=== PATIENT | male | born 1950 | race Caucasian/White ===

== ENCOUNTER 2025-05-06 22:54 | Emergency (ER) | payer MEDICARE, SELFPAY ==
--- OUTSIDE RECORDS SUMMARY | 2005-07-18 09:00 | XMS_ITS | Continuity of Care Document ---
Author Organization [facility] Address [id number] [place] [address] [address] [place] [address] Phone Care Team Providers Care General Internal Medicine Doctor Name Role Phone Rosina Valdivia Unavailable Unavailable Advance Directives Directive Yes / No Effective Date File Name No Information Encounters Encounter Description Practice Location Reason(s) For Visit Diagnoses Date Provider Providers Copied on Encounter [facility], [address], [place], [place], [id number], [place] tel:[phone] [facility] [place] No Information 6-200 6 Shea Almaguer. [address] [facility] , [address], [place], [address], [place]. tel:[phone] Family History Family Member Type Diagnosis Age At Onset No Information Payers Payer name Insurance type Covered alliance party ID Authoriza tion(s) [employer] SOI CI [id number] Social History Type Description Quantity Date Captured Comments Sex Male Smoking Status No Information Chief Complaint And Reason For Visit No Information Reason For Referral Reason For Referral No Information History Of Present Illness Encounter Date Complaint History Of Prese nt Illness No Information Functional Status Date Functional Assessmen t No Information Instructions Date Instruction Additional Infor mation No Information Assessments Type Assessment Date No Information Patient Care Teams Name Effective Dates (start - stop) Status Members No Information
--- OUTSIDE RECORDS SUMMARY | 2005-07-18 09:00 | XMS_ITS | Continuity of Care Document ---
Author Organization [facility] Address [address] [place] [address] [address] [place] [address] Phone Care Team Providers Care Loss Prevention Detective Name Role Phone Rosina Valdivia Unavailable Unavailable Advance Directives Directive Yes / No Effective Date File Name No Information Encounters Encounter Description Practice Location Reason(s) For Visit Diagnoses Date Provider Providers Copied on Encounter [facility], [address], [place], [place], [id number], [place] tel:[phone] [facility] [place] No Information 6-200 6 Shea Almaguer. [address] [facility] , [address], [place], [address], [place]. tel:[phone] Family History Family Member Type Diagnosis Age At Onset No Information Payers Payer name Insurance type Covered green party ID Authoriza tion(s) [employer] SOI CI [id number] Social History Type Description Quantity Date Captured [...]
--- OUTSIDE RECORDS SUMMARY | 2005-07-18 09:00 | XMS_ITS | Continuity of Care Document ---
Author Organization [facility] Address [address] [place] [address] [address] [place] [address] Phone Care Team Providers Care Electrical Wiring Lineman Name Role Phone Rosina Valdivia Unavailable Unavailable Advance Directives Directive Yes / No Effective Date File Name No Information Encounters Encounter Description Practice Location Reason(s) For Visit Diagnoses Date Provider Providers Copied on Encounter [facility], [address], [place], [place], [id number], [place] tel:[phone] [facility] [place] No Information 6-200 6 Shea Almaguer. [address] [facility] , [address], [place], [address], [place]. tel:[phone] Family History Family Member Type Diagnosis Age At Onset No Information Payers Payer name Insurance type Covered constitution party ID Authoriza tion(s) [employer] SOI CI [id number] Social History Type Description Quantity Date Captured [...]
--- OUTSIDE RECORDS SUMMARY | 2005-07-18 09:00 | XMS_ITS | Continuity of Care Document ---
Author Organization [facility] Address [address] [place] [address] [address] [place] [address] Phone Care Team Providers Care Body Fitter Name Role Phone Rosina Valdivia Unavailable Unavailable Advance Directives Directive Yes / No Effective Date File Name No Information Encounters Encounter Description Practice Location Reason(s) For Visit Diagnoses Date Provider Providers Copied on Encounter [facility], [address], [place], [place], [id number], [place] tel:[phone] [facility] [place] No Information 6-200 6 Shea Almaguer. [address] [facility] , [address], [place], [address], [place]. tel:[phone] Family History Family Member Type Diagnosis Age At Onset No Information Payers Payer name Insurance type Covered democrat ID Authoriza tion(s) [employer] SOI CI [id number] Social History Type Description Quantity Date Captured [...]
--- OUTSIDE RECORDS SUMMARY | 2025-01-06 18:00 | XMS_ITS | Continuity of Care Document ---
Author Organization [facility] Address [address] [place] [address] Phone Care Team Providers Care Radio Equipment Installer Name Role Phone Ildefonso ROWAN, FACC, Maurice Unavailable Unavailab le Procedures Procedure Date TTE W/DOPPLER, COMPLETE ELECTROCARDIOGRAM REPORT CHURCH OFFICIAL Split Share Billing [facility] CARE [facility]SEQU[facility] CARE Advance Directives Directive Yes / No Effective Date File Name No Information Encounters Encounter Description Practice Location Reason(s) For Visit Diagnoses Date Provider Providers Copied on Encounter [facility], [address] [place] [address], [id number], tel:[phone] [facility] Inpt No Information 5 Ildefonso Richards. [address] [place] [address], [id number] , . tel: [phone] Referring Provider: Maurice Fregoso, [address] [place] [address], [id number] . tel:[phone] [facility], [address] [place] [address], [id number], tel:[phone] [facility] Inpt No Information 5 Magen Valdez. [address] [place] [address], [id number] , . tel:[phone] Referring Provider: José Miguel Zaptaa, [address] [place] [address], [id number] . tel:[phone] [facility], [address] [place] [address], [id number], tel:[phone] [facility] Inpt Abnormal electrocardiogram [ECG] [EKG]Athscl heart disease of [place] coronary artery w/o ang pctrsEssential (primary) hypertension 5 Lidia Corcoran. [address] [place] [address], [id number] , . tel: [phone] [facility] C[facility], [address] [place] [address], [id number], tel:[phone] [facility] Inpt Abnormal electrocardiogram [ECG] [EKG]Athscl heart disease of [place] coronary artery w/o ang pctrsEssential (primary) hypertension 5 Magen Valdez. [address] [place] [address], [id number] , . tel: [phone] [facility], [address] [place] [address], [id number], tel:[phone] [facility] Inpt Abnormal electrocardiogram [ECG] [EKG]Athscl heart disease of [place] coronary artery w/o ang pctrsEssential (primary) hypertension 5 Dayanna Hart. [address] [place] [address], [id number] , . tel: [phone] Family History Family Member Type Diagnosis Age At Onset No Information Payers Payer name Insurance type Covered libertarian ID Anali orozco(s) [place] [id number] Social History Type Description Quantity Date Captured [...]
--- OUTSIDE RECORDS SUMMARY | 2025-01-06 18:00 | XMS_ITS | Continuity of Care Document ---
Author Organization [facility] Address [address] [place] [address] Phone Care Team Providers Care Zinc Plating Machine Operator Name Role Phone Ildefonso ROWAN, FACC, Maurice Unavailable Unavailab le Procedures Procedure Date TTE W/DOPPLER, COMPLETE ELECTROCARDIOGRAM REPORT WELDING TECHNICIAN Split Share Billing SUBSEQUENT [facility]OSPITAL CARE SUBSEQU[facility] HOSPITAL CARE Advance Directives Directive Yes / No Effective Date File Name No Information Encounters Encounter Description Practice Location Reason(s) For Visit Diagnoses Date Provider Providers Copied on Encounter [facility], [address] [place] [address], [id number], tel:[phone] [facility] Inpt No Information 5 Ildefonso Richards. [address] [place] [address], [id number] , . tel: [phone] Referring Provider: Maurice Fregoso, [address] [place] [address], [id number] . tel:[phone] [facility], [address] [place] [address], [id number], tel:[phone] [facility] Inpt No Information 5 Magen Valdez. [address] [place] [address], [id number] , . tel:[phone] Referring Provider: José Miguel Zapata, [address] [place] [address], [id number] . tel:[phone] [facility], [address] [place] [address], [id number], tel:[phone] [facility] Inpt Abnormal electrocardiogram [ECG] [EKG]Athscl heart disease of [place] coronary artery w/o ang pctrsEssential (primary) hypertension 5 Lidia Corcoran. [address] [place] [address], [id number] , . tel: [phone] [facility], [address] [place] [address], [id number], tel:[phone] [facility] Inpt Abnormal electrocardiogram [ECG] [EKG]Athscl heart disease of [place] coronary artery w/o ang pctrsEssential (primary) hypertension 5 Magen Valdez. [address] [place] [address], [id number] , . tel: [phone] [facility], [address] [place] [address], [id number], tel:[phone] [facility] Inpt Abnormal electrocardiogram [ECG] [EKG]Athscl heart disease of [place] coronary artery w/o ang pctrsEssential (primary) hypertension 5 Dayanna Hart. [address] [place] [address], [id number] , . tel: [phone] Family History Family Member Type Diagnosis Age At Onset No Information Payers Payer name Insurance type Covered libertarian ID Anali orozco(s) [place] CI [id number] Social History Type Description Quantity Date Captured [...]
--- OUTSIDE RECORDS SUMMARY | 2025-01-06 18:00 | XMS_ITS | Continuity of Care Document ---
Author Organization [facility] Address [address] [place] [phone] Phone Care Team Providers Care Physician General Practice Name Role Phone Ildefonso ROWAN, FACC, Maurice Unavailable Unavailab le Procedures Procedure Date TTE W/DOPPLER, COMPLETE ELECTROCARDIOGRAM REPORT SPEAR FISHER Split Share Billing [facility]SEQU[facility] CARE SUBSEQU[facility]OSPITAL CARE Advance Directives Directive Yes / No Effective Date File Name No Information Encounters Encounter Description Practice Location Reason(s) For Visit Diagnoses Date Provider Providers Copied on Encounter [facility], [address] [place] [address], [id number], tel:[phone] [facility] Inpt No Information 5 Ildefonso Richards. [address] [place] [address], [id number] , . tel: [phone] Referring Provider: Maurice Fregoso, [address] [place] [address], [id number] . tel:[phone] [facility], [address] [place] [address], [id number], tel:[phone] [facility] Inpt No Information 5 Magen Valdez. [address] [place] [address], [id number] , . tel:[phone] Referring Provider: José Miguel Zapata, [address] [place] [address], [id number] . tel:[phone] [facility], [address] [place] [address], [id number], tel:[phone] [facility] Inpt Abnormal electrocardiogram [ECG] [EKG]Athscl heart disease of [place] coronary artery w/o ang pctrsEssential (primary) hypertension 5 Lidia Corcoran. [address] [place] [address], [id number] , . tel: [phone] [facility], [address] [place] [address], [id number], tel:[phone] [facility] Inpt Abnormal electrocardiogram [ECG] [EKG]Athscl heart disease of [place] coronary artery w/o ang pctrsEssential (primary) hypertension 5 Magen Valdez. [address] [place] [address], [id number] , . tel: [phone] [facility], [address] [place] [address], [id number], tel:[phone] [facility] Inpt Abnormal electrocardiogram [ECG] [EKG]Athscl heart disease of [place] coronary artery w/o ang pctrsEssential (primary) hypertension 5 Dayanna Hart. [address] [place] [address], [id number] , . tel: [phone] Family History Family Member Type Diagnosis Age At Onset No Information Payers Payer name Insurance type Covered green party ID Anali orozco(s) [place] CI [id number] Social History Type Description Quantity Date Captured [...]
--- OUTSIDE RECORDS SUMMARY | 2025-01-06 18:00 | XMS_ITS | Continuity of Care Document ---
Author Organization [facility] Address [address] [place] [address] Phone Care Team Providers Care University Tutor Name Role Phone Ildefonso ROWAN, FACC, Maurice Unavailable Unavailab le Procedures Procedure Date TTE W/DOPPLER, COMPLETE ELECTROCARDIOGRAM REPORT MOLD MAKER PLASTIC MOLDS Split Share Billing [facility] CARE SUB[facility] CARE Advance Directives Directive Yes / No Effective Date File Name No Information Encounters Encounter Description Practice Location Reason(s) For Visit Diagnoses Date Provider Providers Copied on Encounter [facility], [address] [place] [address], [id number], tel:[phone] [facility] Inpt No Information 5 Ildefonso Richards. [address] [place] [address], [id number] , . tel: [phone] Referring Provider: Maurice Fregoso, [address] [place] [address], [id number] . tel:[phone] [facility], [address] [place] [address], [id number], tel:[phone] [facility] Inpt No Information 5 Magen Valdez. [address] [place] [address], [id number] , . tel:[phone] Referring Provider: José Miguel Zapata, [address] [place] [address], [id number] . tel:[phone] [facility], [address] [place] [address], [id number], tel:[phone] [facility] Inpt Abnormal electrocardiogram [ECG] [EKG]Athscl heart disease of [place] coronary artery w/o ang pctrsEssential (primary) hypertension 5 Lidia Corcoran. [address] [place] [address], [id number] , . tel: [phone] [facility], [address] [place] [address], [id number], tel:[phone] [facility] Inpt Abnormal electrocardiogram [ECG] [EKG]Athscl heart disease of [place] coronary artery w/o ang pctrsEssential (primary) hypertension 5 Magen Valdez. [address] [place] [address], [id number] , . tel: [phone] [facility], [address] [place] [address], [id number], tel:[phone] [facility] Inpt Abnormal electrocardiogram [ECG] [EKG]Athscl heart disease of [place] coronary artery w/o ang pctrsEssential (primary) hypertension 5 Dayanna Hart. [address] [place] [address], [id number] , . tel: [phone] Family History Family Member Type Diagnosis Age At Onset No Information Payers Payer name Insurance type Covered democrat ID Anali orozco(s) [place] CI [id number] Social History Type Description Quantity Date Captured [...]
[2025-05-06] VITALS (8 sets, daily range): BP systolic 150–212; BP diastolic 89–93; PULSE 91–116; RESP 16–21; TEMP 36.5; O2SAT 99–100
--- NOTE | ~2025-05-06 | CT_ITS ---
EXAMINATION: CT abdomen pelvis wo/w con DATE: 05/07/2025 01:15 INDICATION: Gastrointestinal hemorrhage. TECHNIQUE: Computed tomography (CT) of the abdomen and pelvis was performed without and with 100 mL of Isovue 350 intravenous contrast. Automated exposure control and iterative reconstruction technique were employed. The dose-length product was 728.21 mGy-cm. COMPARISON: None. FINDINGS: The visualized portions of the lung bases demonstrate mild scarring in paraspinal right lower lobe. No pleural effusion. The heart size is normal. No pericardial effusion. There are coronary artery calcifications. There are calcifications of the aortic valve. The liver is normal. Calcifications in the spleen are consistent with old granulomatous disease. The gallbladder, pancreas, and right adrenal glands are normal. There is a 10 mm mass in left adrenal gland measuring low attenuation, consistent with an adenoma. There are cysts in the kidneys measuring up to 13 mm on the right. There are parenchymal calcifications in the kidneys bilaterally. There is a 5 mm stone in left kidney. There is a 5 mm stone in right kidney. The prostate is severely enlarged. There is a left inguinal hernia containing fat. There is diverticulosis of the colon without evidence of diverticulitis. The appendix is normal. There are no dilated loops of bowel. There are no pathologically enlarged lymph nodes. There is a small sliding hiatal hernia. There is no free intraperitoneal fluid. There is calcified atherosclerosis of the aorta and many of the other arteries. There is moderate stenosis of the renal arteries bilaterally. There is moderate stenosis of superior mesenteric artery and inferior mesenteric artery. There is severe lower lumbar spondylosis. IMPRESSION: 1. No etiology for gastrointestinal hemorrhage. 2. Moderate stenosis of the renal arteries, superior mesenteric artery, and inferior mesenteric artery. Reviewed, dictated and finalized at [facility] IMPRESSION: 1. No etiology for gastrointestinal hemorrhage. 2. Moderate stenosis of the renal arteries, superior mesenteric artery, and inf erior mesenteric artery.
--- NOTE | 2025-05-06 23:12 | ECG_ITS ---
Test Date: 2025-05-06 23:29:19 Measurements Intervals Hen[place] Rate: 95 P: 36 UT: 150 QRS: 2 QRSD: 90 T: 50 QT: 328 QTc: 413 Interpretive Statements SINUS RHYTHM WITH OCCASIONAL SUPRAVENTRICULAR PREMATURE COMPLEXES POSSIBLE RIGHT VENTRICULAR CONDUCTION DELAY Electronically Signed On 05-07-2025 10:53:17 SENIOR SYSTEMS ENGINEER by Miguel A Gary D.O
--- NOTE | 2025-05-06 23:22 | ED.GENADULT ---
HPI - General Adult General Chief complaint: GI Bleed Stated complaint: colon cancer- rectal bleeding-bright red and clots Time Seen by Provider: 05/06/25 23:01 History of Present Illness HPI narrative: this is a 75-year-old male w/ a hx of anemia who has recently been diagnosed with colon cancer presenting for GI bleeding. Patient said he was having some gas pains afternoon. He went to have a bowel movement and could not pass stool. However when he white he noticed that the toilet paper was pink tinged. He then had a bowel movement later which had some specks of blood in it when he wiped there was red blood on the toilet paper. The blood did not fill up the toilet bowl. patient denies any other symptoms. In fact he says he feels great. patient has a mass in his rectum. He is obtaining initial workup with [facility] at site min. Exam Narrative: APPEARANCE: No apparent distress. Head: atraumatic. EYES: EOMI, NOSE: Atraumatic NECK: Trachea midline RESPIRATORY: No increased rate of breathing so nontender CARDIOVASCULAR: tachycardic, no peripheral edema ABDOMINAL: [id number] nontender rectal exam: No external hemorrhoids, specks of red blood mixed with brown stool on digital rectal exam MUSCULOSKELETAl: No obvious deformities NEURO: Alert. Moving 4/4 extremities SKIN:: Warm, dry. Normal color PSYCHIATRIC: Normal affect Course Vital Signs Vital signs: Vital Signs Temperature 97.7 F 05/06/25 22:59 Pulse Rate 94 05/06/25 22:59 Respiratory Rate 18 05/06/25 22:59 Blood Pressure 156/89 H 05/06/25 22:59 Pulse Oximetry 100 05/06/25 22:59 Oxygen Delivery Room Air 05/06/25 22:59 Temperature 97.7 F 05/06/25 22:59 Pulse Rate 90 05/07/25 00:30 Respiratory Rate 17 05/07/25 00:30 Blood Pressure 150/90 H 05/06/25 23:31 Pulse Oximetry 99 05/07/25 00:30 Oxygen Delivery Room Air 05/06/25 22:59 Medical Decision Making [facility] Narrative Medical decision making narrative: -Course: 75-year-old male history of rectal cancer presenting for lower GI bleed. Hemoglobin is 9.4. I checked the patient's MyChart and his hemoglobin from late March was 9.6. Patient has brown stool with specks of red in his digital rectal exam. CT abdomen pelvis showed rectal wall thickening but no evidence of obstruction. Patient's bleeding is most likely a bleed from his rectal cancer. His hemoglobin is stable. are vital signs are stable. Results were discussed with the patient he is comfortable following up with his oncologist for further management. I have stressed the importance of returning to the ED if he continues to have rectal bleeding or develops signs of anemia like weakness shortness of breath or chest pain. -DDX includes but is not limited to: Bleeding from cancer, hemorrhoids diverticulosis, brisk upper GI bleed -Co-morbidities complicating care:Colon cancer Vital Signs Vital Signs: Vital Signs Temperature 97.7 F 05/06/25 22:59 Pulse Rate 94 05/06/25 22:59 Respiratory Rate 18 05/06/25 22:59 Blood Pressure 156/89 H 05/06/25 22:59 Pulse Oximetry 100 05/06/25 22:59 Oxygen Delivery Room Air 05/06/25 22:59 Temperature 97.7 F 05/06/25 22:59 Pulse Rate 90 05/07/25 00:30 Respiratory Rate 17 05/07/25 00:30 Blood Pressure 150/90 H 05/06/25 23:31 Pulse Oximetry 99 05/07/25 00:30 Oxygen Delivery Room Air 05/06/25 22:59 Lab Data 05/06/25 23:24 05/06/25 23:24 Labs: Lab Results 05/06/25 05/06/25 05/07/25 Range/Units 23:24 23:32 01:47 WBC 7.6 (4.5-10.0) K/mm3 RBC 5.04 (4.6-6.20) M/mm3 Hgb 9.4 L (14.0-18.0) g/dL Hct 33.9 L (42.0-52.0) % MCV 67.3 L (80-100) fl MCH 18.7 L (26-34) pg MCHC 27.7 L (32-36) g/dl RDW 23.1 H (11.5-14.5) % Plt Count 314 (150-375) k/mm3 MPV 9.3 (7.4-10.4) fl Immature Gran % (Auto) 0.5 (0-0.5) % Neut % (Auto) 68.8 (45.5-73.1) % Lymph % (Auto) 11.6 L (18.3-44.2) % [place] % (Auto) 13.0 H (2.6-8.5) % Eos % (Auto) 5.6 H (0-4.4) % Baso % (Auto) 0.5 (0.2-1.2) % Lymph # (Auto) 0.89 L (0.9-3.2) K/mm3 [place] # (Auto) 1.0 H (0.1-0.6) K/mm3 Eos # (Auto) 0.4 H (0-0.3) K/mm3 Baso # (Auto) 0.0 (0.0-0.1) K/mm3 Abs Immat Gran (auto) 0.04 H (0.00-0.031) K/mm3 Absolute Neuts (auto) 5.3 (1.3-6.7) K/mm3 Absolute Nucleated RBC 0.000 (0.0-0.012) K/mm3 Band Neutrophils % Not Reportable Nucleated RBC % 0.0 (0.0-0.2) % Platelet Estimate Adequate (Adequate) Anisocytosis 2+ Ovalocytes 1+ Schistocytes Occasional PT 13.7 (11.1-14.7) Seconds INR 1.1 APTT 28.0 (22.3-36.8) Seconds Sodium 138 (137-145) mmol/L Potassium 4.1 (3.4-5.0) mmol/L Chloride 106 (98-107) mmol/L Carbon Dioxide 25 (22-30) mmol/L Anion Gap 7 (4-12) mmol/L BUN 15 (9-20) mg/dL Creatinine 1.22 (0.7-1.3) mg/dL Estim Creat Clear Calc 43 ml/min Estimated GFR 58 L (59 - ) Glucose 104 (65-110) mg/dL POC Capillary Glucose 97 (65-105) mg/dl Lactic Acid 1.5 (0.7-2.0) mmol/L Calcium 9.1 (8.4-10.2) mg/dL Magnesium 2.2 (1.6-2.3) mg/dL Total Bilirubin 1.1 (0.2-1.3) mg/dL AST 23 (17-59) U/L ALT 18 (6-50) U/L Alkaline Phosphatase 90 (38-126) U/L Troponin I < 0.012 (0.000-0.034) ng/mL Total Protein 6.6 (6.3-8.2) g/dL Albumin 4.1 (3.5-5.1) g/dL Lipase 62 (23-300) U/L Urine Color Yellow (Yellow) Urine Appearance Clear (Clear) Urine pH 6.5 (5.0-9.0) Ur Specific [place] 1.039 H (1.001-1.035) Urine Protein 1+ H (Negative) mg/dL Urine Glucose (UA) Negative (Negative) mg/dL Urine Ketones Negative (Negative) mg/dL Ur Blood (Man) Negative (Negative) Urine Nitrate Negative (Negative) Urine Bilirubin Negative (Negative) Urine Urobilinogen 1.0 (<2.0) mg/dL Leukocyte Esterase Rfl Negative (Negative) CHRISTIAN/UL Urine RBC 0-2 (0-2) /hpf Urine WBC 0-5 (0-3) /hpf Ur Squamous Epith Cells None seen (Few) /hpf Urine Bacteria None seen /hpf Urine Casts 0-2 Discharge Plan Discharge Clinical Impression: Rectal cancer Patient Disposition: Home Condition: Stable Instructions: Antibiotic Form, Rectal Bleeding (ED) Additional Instructions: you were seen in the ED for rectal bleeding. This is likely minor bleeding from her cancer. Please follow-up with your oncologist for further management. if you continue to rectal bleeding and it is getting worse, or you become short of breath, lightheaded or dizzy please return to the ED re-evaluation. Patient Language: Montserratian Follow-up/Referrals: Donna,Ramiro Grewal MD [Primary Care Provider, Unknown]
[2025-05-06 23:29] LABS: Hematocrit 33.9 % (42.0-52.0); Hemoglobin 9.4 g/dL (14.0-18.0); Immature Granulocyte Percent A 0.5 % (0-0.5); Lymphocytes Absolute Auto 0.89 K/mm3 (0.9-3.2); Mean Corpuscular HGB Conc 27.7 g/dl (32-36); Mean Corpuscular Hemoglobin 18.7 pg (26-34); Mean Corpuscular Volume 67.3 fl (80-100); Nucleated Red Blood Cells Absolute Auto 0.000 K/mm3 (0.0-0.012); Nucleated Red Blood Cells Perc 0.0 % (0.0-0.2); Platelet Count Result 314 k/mm3 (150-375); Red Blood Count 5.04 M/mm3 (4.6-6.20); White Blood Count 7.6 K/mm3 (4.5-10.0)
[2025-05-06] MEDS: SODIUM CHLORIDE 0.9% IV 1,000 ML 999 ML IV CONT (23:34)
[2025-05-06 23:44] LABS: INR 1.1; Partial Thromboplastin Time 28.0 Seconds (22.3-36.8); Prothrombin Time 13.7 Seconds (11.1-14.7)
[2025-05-06 23:45] LABS: Alanine Aminotransferase 18 U/L (6-50); Albumin Level 4.1 g/dL (3.5-5.1); Alkaline Phosphatase 90 U/L (38-126); Anion Gap 7 mmol/L (4-12); Aspartate Amino Transferase 23 U/L (17-59); Bilirubin,Total 1.1 mg/dL (0.2-1.3); Blood Urea Nitrogen 15 mg/dL (9-20); Calcium 9.1 mg/dL (8.4-10.2); Carbon Dioxide 25 mmol/L (22-30); Chloride 106 mmol/L (98-107); Estimated CRCL calculation 43 ml/min; Estimated Glomerular Filt Rate 58; Glucose 104 mg/dL (65-110); Lipase 62 U/L (23-300); Magnesium 2.2 mg/dL (1.6-2.3); Potassium 4.1 mmol/L (3.4-5.0); Sodium 138 mmol/L (137-145); Total Protein 6.6 g/dL (6.3-8.2)
[2025-05-06 23:52] LABS: Troponin I < 0.012 ng/mL (0.000-0.034)
[2025-05-07] VITALS: PULSE 97; RESP 23
[2025-05-07 00:01] LABS: Anisocytosis 2+
[2025-05-07 00:02] LABS: Ovalocytes 1+; Schistocytes Occasional
[2025-05-07 00:15] VITALS: PULSE 83; RESP 19; O2SAT 99
[2025-05-07 00:30] VITALS: PULSE 90; RESP 17; O2SAT 99
[2025-05-07 01:59] LABS: Add Urine Microscopic? YES; Appearance Urine Clear (Clear); Glucose Urine UA Negative (Negative); Leukocyte Esterase Ur Negative LEU/UL (Negative); Nitrate Urine Negative (Negative); Non Pathogenic Casts 0-2; Specific Grav Ur 1.039 (1.001-1.035)
[2025-05-07 04:11] VITALS: BP 171/100; PULSE 90; RESP 18; O2SAT 99
== END 2025-05-07 04:15 | disposition home or self-care (01) ==
PROVIDERS: Emergency Provider Emergency Medicine; PCP Internal Medicine
DX: C20 Malignant neoplasm of rectum (principal); D64.9 Anemia, unspecified; I49.1 Atrial premature depolarization; R94.31 Abnormal electrocardiogram [ECG] [EKG]; I70.1 Atherosclerosis of renal artery; K55.1 Chronic vascular disorders of intestine
CPT/HCPCS: 36415; 74178; 80053; 81001; 82948; 83605; 83690; 83735; 84484; 85025; 85610; 85730; 93005; 96360; 99284; J7030; Q9967